=== PATIENT | female | born 1975 | race Two or more races ===

== ENCOUNTER 2018-10-02 13:45 | Emergency (ER) | payer SELFPAY ==
[~2018-10-02] VITALS: Ht 157.5 cm; Wt 47.6 kg
[2018-10-02 14:58] LABS: BASOPHILS % (AUTO) 0.8 % (0.0-2.0); EOSINOPHILS # (AUTO) 0.1 K/uL (0.0-0.7); EOSINOPHILS % (AUTO) 2.2 % (0.0-7.0); HEMOGLOBIN 10.7 g/dL (10.9-14.3); LYMPHOCYTES % (AUTO) 19.4 % (20.5-51.5); MEAN CORPUSCULAR HEMOGLOBIN 28.4 uug (24.7-32.8); MEAN CORPUSCULAR HGB CONC 33 g/dL (32.3-35.6); MEAN CORPUSCULAR VOLUME 85.1 fL (75.5-95.3); MONOCYTES # (AUTO) 0.3 K/uL (2.0-10.0); MONOCYTES % (AUTO) 6.1 % (0.0-11.0); NEUTROPHILS # (AUTO) 3.7 K/uL (1.8-8.9); NEUTROPHILS % (AUTO) 71.5 % (38.5-71.5); PLATELET COUNT (AUTO) 243 K/uL (179-408); RED BLOOD CELL COUNT(AUTO) 3.77 MIL/uL (3.63-4.92); WHITE BLOOD COUNT (AUTO) 5.2 K/uL (3.8-11.8)
[2018-10-02 15:10] LABS: CREATININE 0.6 mg/dL (0.6-1.3); POTASSIUM 4.2 mmol/L (3.5-5.1)
[2018-10-02 15:16] LABS: BILIRUBIN,DIRECT 0.1 mg/dL (0.0-0.2); BILIRUBIN,TOTAL 0.3 mg/dL (0.2-1.0); TOTAL PROTEIN, SERUM 7.7 g/dL (6.4-8.2)
--- NOTE | 2018-10-02 15:46 | NUR ---
Patient discharged to home in stable conditon & brisk steady gait. Written and verbal after care instructions given to patient. Patient verbalizes understanding of instructions. Copies of all the tests results were provided to the patient.
== END 2018-10-02 15:56 | disposition home or self-care (01) ==
LOC: ER 13:45
DX: N92.0 Excessive and frequent menstruation with regular cycle (principal); J45.909 Unspecified asthma, uncomplicated
CPT/HCPCS: 36415; 76856; 85025; 85730; A4663